=== PATIENT | female | born 1935 | race Hispanic/Latino ===

== ENCOUNTER 2016-12-30 17:41 | Emergency (ER) | payer MEDICARE ==
[2016-12-30 17:57] VITALS: BP 145/70; PULSE 71; RESP 16; TEMP 98.1; O2SAT 96
[2016-12-30] MEDS ORDERED: Silver Sulfadiazine 1% CREAM (50 gm) TOP STA (18:13)
[2016-12-30] MEDS ORDERED: Silver Sulfadiazine 1% CREAM (50 gm) ONE (18:24)
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
== END 2016-12-30 18:39 | disposition home or self-care (01) ==
LOC: H.ER 17:41
DX: T22.212A Burn of second degree of left forearm, initial encounter (principal); T79.9XXA Unspecified early complication of trauma, initial encounter; X13.1XXA Other contact with steam and other hot vapors, initial encounter; Y93.9 Activity, unspecified